=== PATIENT | female | born 2000 | race Caucasian/White ===

== ENCOUNTER → 2024-11-20 10:49 | Outpatient (REF) | payer OTHER, SELFPAY ==
[2024-11-20 12:53] LABS: Hepatitis B Surface Antibody Negative
[2024-11-22 04:05] LABS: Quantiferon Mitogen minus NIL 9.99 IU/mL; Quantiferon NIL 0.01 IU/mL; Quantiferon TB Gold Plus Negative (Negative)
== END ==
LOC: OHS 10:49
PROVIDERS: ATTENDING PHYSICIAN Nurse Practitioner Family; FAMILY PHYSICIAN Family Medicine
DX: Z23 Encounter for immunization (principal)
CPT/HCPCS: 36415; 86480; 86706

== ENCOUNTER → 2025-06-16 10:28 | Outpatient (REF) | payer OTHER, SELFPAY | LOC: REG 10:28 | PROVIDERS: ATTENDING PHYSICIAN Nurse Practitioner Family | DX: Z23 Encounter for immunization (principal) | CPT/HCPCS: 36415; 86480 ==